=== PATIENT | female | born 1960 | race Asian ===

== ENCOUNTER 2024-07-05 13:08 | Outpatient (CLI) | payer SELFPAY ==
--- NOTE | 2024-07-05 16:22 | XRAY Report ---
PROCEDURE: Chest 2V INDICATIONS: SCREENING FOR RESPIRATORY TB TECHNIQUE: 2 views of the chest were acquired. COMPARISON: None. FINDINGS: Surgical changes and devices: None. Lungs and pleura: No pleural effusions or pneumothorax. Lungs are clear. Mediastinum: Mediastinal contours appear normal. Heart size is normal. Bones and chest wall: No suspicious bony lesions. Overlying soft tissues appear unremarkable. IMPRESSION: No acute cardiopulmonary process. Reviewed by: Reinaldo Jones MD on 07/05/2024 4:20 PM PDT Approved by: Reinaldo Jones MD on 07/05/2024 4:20 PM PDT Station ID: [id number]
[2024-07-06 04:09] LABS: HIV SCREEN 4TH GENERATION Non Reactive (Non Reactive)
== END 2024-07-05 13:09 | disposition home or self-care (01) ==
LOC: LAB 13:08
PROVIDERS: ATTEND Emergency Medicine
DX: Z11.1 Encounter for screening for respiratory tuberculosis (principal)
CPT/HCPCS: 36415; 81599; 87389